=== PATIENT | female | born 1950 | race Caucasian/White ===

== ENCOUNTER 2018-03-18 13:13 | Day surgery (SDC) | payer MEDICARE, BC ==
[~2018-03-18 13:13] MED LIST: Dexamethasone 10 MG/ML SDV ONE; Glycopyrrolate 0.2 MG/ML SDV ONE; Lactated Ringers 1,000 ML IV SCH; Midazolam 1 MG/ML 2 ML SDV ONE; Neostigmine Methylsulfate 10 MG/10 ML MDV ONE; Ondansetron 4 MG/2 ML SDV ONE; Propofol 200 MG/20 ML SDV ONE; Rocuronium 100 MG/10 ML MDV ONE; Sodium Chloride 0.9% 10 ML Syringe FLUSH PRN; Succinylcholine 200 MG/10 ML MDV ONE; ceFAZolin 1 GM Vial ONE; fentaNYL 250 MCG/5 ML SDV ONE
[2018-03-18] MEDS ORDERED: Propofol 200 MG/20 ML SDV ONE ×2 (14:45→14:46)
[2018-03-18] MEDS ORDERED: Midazolam 1 MG/ML 2 ML SDV ONE ×2 (14:45→14:46)
--- NOTE | 2018-03-18 14:56 | PCM.PN ---
- General Info Date of Service: 03/18/18 - Review of Systems Systems Review Comment:: 67-year-old female referred for colonoscopy. She has a history of prior colon resection for cancer. A recent CT scan showed thickening of the bowel wall.She is medically stable to proceed today. I have discussed the proposed colonoscopy with the patient. She appears to understand and agrees to proceed accepting risks. - Patient Data Vitals - Most Recent: Last Vital Signs Temp 97.8 F 03/18/18 13:35 Pulse 78 03/18/18 13:35 Resp 18 03/18/18 13:35 BP 131/79 03/18/18 13:35 Pulse Ox 96 03/18/18 13:35 Weight - Most Recent: 76.657 kg Med Orders - Current: Current Medications Lactated Ringer's (Ringers, Lactated) 1,000 mls @ 125 mls/hr IV ASDIRECTED YONNY Last Admin: 03/18/18 14:00 Dose: 125 mls/hr Sodium Chloride (Saline Flush) 10 ml FLUSH ASDIRECTED PRN PRN Reason: Keep Vein Open Discontinued Medications Midazolam HCl (Versed 1 Mg/Ml) Confirm Administered Dose 2 mg .ROUTE .STK-MED ONE Stop: 03/18/18 14:46 Propofol (Diprivan 20 Ml) Confirm Administered Dose 200 mg .ROUTE .STK-MED ONE Stop: 03/18/18 14:46 - Problem List Review Problem List Initiated/Reviewed/Updated: Yes - Assessment Assessment:: history of colon cancer Bowel wall thickening - Plan Plan:: colonoscopy
--- NOTE | 2018-03-18 15:28 | PCM.OPNOTE ---
- General Post-Op/Procedure Note Date of Surgery/Procedure: 03/18/18 Operative Procedure(s): Colonoscopy with polyp ablation Findings: Small Sigmoid colon polyps Normal Anastomosis Pre Op Diagnosis: History of Colon Cancer Post-Op Diagnosis: Colon Polyps Anesthesia Technique: MAC Primary Surgeon: Devon Jimenez Pathology: none Output, Urine Amount: 0 EBL in mLs: 0 Complications: None Condition: Good Free Text/Narrative:: Intake & Output 03/18/18 03/18/18 03/18/18 06:59 14:59 22:59 Intake Total 850 Balance 850
[2018-03-18 17:52] VITALS: BP 151/75
--- NOTE | 2018-03-19 07:45 | OR ---
Date of Procedure: 03/18/2018 PREOPERATIVE DIAGNOSES: History of colon cancer and abnormal CT scan. POSTOPERATIVE DIAGNOSIS: Sigmoid colon polyps. OPERATIONS PERFORMED: Colonoscopy with polyp ablation. INDICATIONS FOR SURGERY: This 67-year-old female who has previously undergone a right hemicolectomy for carcinoma of the colon was found on recent CT scan to have thickening of the sigmoid colon wall. She comes now for colonoscopy. FINDINGS: The sigmoid colon wall did not appear acutely inflamed, and no significant abnormalities of the mucosa were noted. I did not identify any extrinsic or intrinsic masses. There were 2 diminutive polyps in the sigmoid colon, each 2 to 3 mm in size; these were ablated, but no findings to suggest malignancy or any inflammatory process of the colon was seen. The remainder of the colon appeared normal. The anastomosis is widely patent and is well healed. DESCRIPTION OF PROCEDURE: The patient was taken to the operating room. She was given intravenous sedation, and with her in the left lateral decubitus position, digital rectal exam was performed showing no rectal masses. The Olympus colonoscope was inserted into the rectum. Retroflexed examination of the rectal canal was performed. The scope was then carefully advanced under direct visualization through the entire length of the remaining colon over to the right side of the colon where the functional end-to-end small bowel to colonic anastomosis was identified. The anastomosis was cannulated and found to be widely patent with no visible abnormalities noted. The scope was slowly withdrawn sequentially re-examining the colonic segments. The sigmoid region was carefully examined and no specific abnormalities other than 2 very small polyps were identified. These were both destroyed with cautery. The examination was then completed. The scope was removed and the patient was taken from the operating room in satisfactory condition. ESTIMATED BLOOD LOSS: Zero. COMPLICATIONS: None. PROGNOSIS: Good. MONICA Jimenez MD /[id number]
== END 2018-03-18 16:13 | disposition home or self-care (01) ==
LOC: LL.SDS 13:13
PROVIDERS: ATTEND Surgery
DX: R93.3 Abnormal findings on diagnostic imaging of other parts of digestive tract (principal); K63.5 Polyp of colon; I10 Essential (primary) hypertension; F32.9 Major depressive disorder, single episode, unspecified; Z85.038 Personal history of other malignant neoplasm of large intestine; Z90.49 Acquired absence of other specified parts of digestive tract; Z88.0 Allergy status to penicillin; Z88.1 Allergy status to other antibiotic agents
CPT/HCPCS: 00811; J0330; J0690; J1100; J2250; J2405; J2704; J2710; J3010; J7120

== ENCOUNTER 2020-11-08 10:13 | Day surgery (SDC) | payer MEDICARE, BC ==
[~2020-11-08 10:13] MED LIST changes: -Dexamethasone 10 MG/ML SDV ONE; -Glycopyrrolate 0.2 MG/ML SDV ONE; -Midazolam 1 MG/ML 2 ML SDV ONE; -Neostigmine Methylsulfate 10 MG/10 ML MDV ONE; -Ondansetron 4 MG/2 ML SDV ONE; -Rocuronium 100 MG/10 ML MDV ONE; -Succinylcholine 200 MG/10 ML MDV ONE; -ceFAZolin 1 GM Vial ONE; -fentaNYL 250 MCG/5 ML SDV ONE
[2020-11-08] MEDS ORDERED: Propofol 200 MG/20 ML SDV ONE (11:45)
--- NOTE | 2020-11-08 11:47 | PCM.PN ---
- General Info Date of Service: 11/08/20 - Review of Systems Systems Review Comment:: 69-year-old female referred for EGD and colonoscopy. Her recent history and physical is reviewed and no significant changes are noted. She is medically stable to proceed today. The patient has a known history of colon cancer and also has a history of chronic unexplained diarrhea. In addition the patient has been having some GERD symptoms. I have reviewed the proposed endoscopic procedures with the patient. She agrees to proceed excepting risks. - Patient Data Vitals - Most Recent: Last Vital Signs Temp 98.2 F 11/08/20 10:48 Pulse 63 11/08/20 10:48 Resp 18 11/08/20 10:48 BP 147/80 H 11/08/20 10:48 Pulse Ox 99 11/08/20 10:48 Weight - Most Recent: 69.4 kg Lab Results Last 24 Hours: Laboratory Results - last 24 hr 11/08/20 Range/Units 10:37 POC Glucose 95 (65-110) mg/dl Med Orders - Current: Current Medications Lactated Ringer's (Ringers, Lactated) 1,000 mls @ 125 mls/hr IV ASDIRECTED YONNY Last Admin: 11/08/20 10:45 Dose: 125 mls/hr Documented by: Sodium Chloride (Saline Flush) 10 ml FLUSH ASDIRECTED PRN PRN Reason: Keep Vein Open Discontinued Medications Propofol (Diprivan 20 Ml) Confirm Administered Dose 400 mg .ROUTE .STK-MED ONE Stop: 11/08/20 09:28 Sepsis Event Note - Focused Exam Vital Signs: Vital Signs Temp Pulse Resp BP Pulse Ox 11/08/20 10:48 98.2 F 63 18 147/80 H 99 - Problem List Review Problem List Initiated/Reviewed/Updated: Yes - Assessment Assessment:: GERD Chronic unexplained diarrhea History of colon cancer - Plan Plan:: EGD and colonoscopy
--- NOTE | 2020-11-08 12:32 | PCM.OPNOTE ---
- General Post-Op/Procedure Note Date of Surgery/Procedure: 11/08/20 Operative Procedure(s): EGD with Biopsy. Colonoscopy with Biopsy Findings: Normal appearing upper endoscopy Normal appearing post op colon Pre Op Diagnosis: Chronic Diarrhea. History of colon ca Post-Op Diagnosis: Normal EGD. Normal post op colon Anesthesia Technique: MAC Primary Surgeon: Devon Jimenez Pathology: Biopsies of Duodenum, Gastric Antrum, Colon EBL in mLs: 3 Complications: None Condition: Good
--- NOTE | 2020-11-08 13:47 | OR ---
Date of Procedure: 11/08/2020 PREOPERATIVE DIAGNOSIS: Gastroesophageal reflux disease and chronic diarrhea. POSTOPERATIVE DIAGNOSIS: Normal upper endoscopy. Normal postop colon. OPERATION PERFORMED: Esophagogastroduodenoscopy with biopsy and colonoscopy with biopsy. INDICATIONS FOR SURGERY: A 69-year-old female has a longstanding known history of chronic diarrhea. She also has had a prior right colon resection for colon cancer. FINDINGS: Structures viewed on upper endoscopy appeared normal. No visible signs of inflammation, ulcers, or anatomic abnormalities were seen. The patient's left and transverse colon appeared normal. No polyps or visible signs of inflammation were seen. Her anastomosis at the level of the mid transverse colon appeared normal with no sign of recurrent carcinoma or visible inflammation. DESCRIPTION OF PROCEDURE: The patient was taken to the operating room. She was given intravenous sedation, and with her in the left lateral decubitus position, Olympus gastroscope was advanced through mouth guard into the oral cavity under direct visualization. The scope was advanced through the hypopharynx down into the esophagus and then advanced through the esophagus, stomach, and into the duodenum, where examination to the third portion was performed. The duodenum was carefully examined. Random biopsies of the duodenum were taken because of the patient's history of diarrhea. The scope was withdrawn back into the stomach where full examination including retroflexed examination of the fundus was performed. Random biopsies of the antrum were taken to rule out H. pylori. The GE junction and esophagus were then also re-examined as the scope was withdrawn. Attention was turned to colonoscopy. Digital rectal exam was performed showing no rectal masses. The Olympus colonoscope was inserted into the rectum and retroflexed examination of the rectal canal was performed. The scope was then carefully advanced under direct visualization through the left side of the colon until the anastomosis in the region of the mid transverse colon is reached. The anastomosis was carefully examined with no visible abnormalities noted. The scope was then slowly withdrawn sequentially examining the left colon. During withdrawal of the scope, random biopsies are taken throughout the length of the colon and are submitted in 2 separate specimen containers. This was performed to rule out microscopic colitis. After the exam had been completed and with no sign of any complication, the scope was removed, and the patient was taken from the operating room in satisfactory condition. ESTIMATED BLOOD LOSS: 3 mL. COMPLICATIONS: None. PROGNOSIS: Good. MONICA Jimenez MD /[id number]
[2020-11-08 13:51] VITALS: BP 136/77; PULSE 53
== END 2020-11-08 13:25 | disposition home or self-care (01) ==
LOC: LL.SDS 10:13
PROVIDERS: ATTEND Surgery
DX: K58.0 Irritable bowel syndrome with diarrhea (principal); K21.9 Gastro-esophageal reflux disease without esophagitis; C18.2 Malignant neoplasm of ascending colon; I10 Essential (primary) hypertension; E11.9 Type 2 diabetes mellitus without complications; Z01.812 Encounter for preprocedural laboratory examination; Z20.822 Contact with and (suspected) exposure to COVID-19; Z79.84 Long term (current) use of oral hypoglycemic drugs; Z85.038 Personal history of other malignant neoplasm of large intestine; Z88.0 Allergy status to penicillin; Z79.899 Other long term (current) drug therapy; Z98.890 Other specified postprocedural states
CPT/HCPCS: 00811; 82962; 88305; J2704; J7120; U0002

== ENCOUNTER 2023-11-05 10:24 | Day surgery (SDC) | payer MEDICARE ==
[~2023-11-05 10:24] MED LIST changes: -Lactated Ringers 1,000 ML IV SCH; +Midazolam 1 MG/ML 2 ML SDV ONE; -Sodium Chloride 0.9% 10 ML Syringe FLUSH PRN
[2023-11-05] MEDS ORDERED: Sodium Chloride 0.9% 10 ML Syringe FLUSH PRN (10:30)
[2023-11-05] MEDS: Lactated Ringers 1,000 ML IV SCH (10:44)
[2023-11-05 13:28] VITALS: BP 122/58; PULSE 53
== END 2023-11-05 14:00 | disposition home or self-care (01) ==
LOC: LL.SDS 10:24
PROVIDERS: ATTEND Surgery
DX: Z12.11 Encounter for screening for malignant neoplasm of colon (principal); I10 Essential (primary) hypertension; E11.9 Type 2 diabetes mellitus without complications; Z86.16 Personal history of COVID-19; K21.9 Gastro-esophageal reflux disease without esophagitis; Z79.899 Other long term (current) drug therapy; Z88.0 Allergy status to penicillin
CPT/HCPCS: 00812; 45378; J2250; J2704; J7120